=== PATIENT | male | born 1960 | race African-American/Black ===

== ENCOUNTER 2017-05-23 12:03 | Day surgery (SDC) | payer OTHER ==
[2017-05-21 12:54] LABS: ABSOLUTE BASOPHILS # (AUTO) 0.1 10^3/uL (0.0-0.2); ABSOLUTE EOSINOPHILS # (AUTO) 0.2 10^3/uL (0.0-0.6); ABSOLUTE LYMPHOCYTES (AUTO) 1.3 10^3/uL (0.5-4.7); ABSOLUTE MONOCYTES (AUTO) 0.8 10^3/uL (0.1-1.4); ABSOLUTE NEUT (AUTO) 3.7 10^3/uL (1.7-8.2); BASOPHILS % (AUTO) 0.9 % (0-2); EOSINOPHILS % (AUTO) 3.1 % (0-6); HEMATOCRIT 47.3 % (37.9-51.0); HEMOGLOBIN 15.6 g/dL (13.5-17.0); LYMPHOCYTES % (AUTO) 21.1 % (13-45); MEAN CORPUSCULAR HEMOGLOBIN 28.3 pg (27.0-33.4); MEAN CORPUSCULAR HGB CONC 33.1 g/dL (32.0-36.0); MEAN CORPUSCULAR VOLUME 86 fl (80-97); MONOCYTES % (AUTO) 13.4 % (3-13); PLATELET COUNT 150 10^3/uL (150-450); RED BLOOD COUNT 5.52 10^6/uL (4.35-5.55); RED CELL DISTRIBUTION WIDTH 14.5 % (11.5-14.0); SEGMENTED NEUTROPHILS % (AUTO) 61.5 % (42-78); TOTAL CELLS COUNTED % (AUTO) 100 %
[2017-05-21 13:15] LABS: ANION GAP 14 (5-19); BLOOD UREA NITROGEN 11 mg/dL (7-20); CALCIUM 10.5 mg/dL (8.4-10.2); CARBON DIOXIDE 27 mmol/L (22-30); CHLORIDE 101 mmol/L (98-107); GLUCOSE 95 mg/dL (75-110); POTASSIUM 4.7 mmol/L (3.6-5.0); SODIUM 141.9 mmol/L (137-145)
--- NOTE | 2017-05-21 17:07 | EKG REPORT ---
SEVERITY:- NORMAL ECG - SINUS RHYTHM : Confirmed by: Josef Collier MD 21-May-2017 17:07:04
[~2017-05-23 12:03] MED LIST: LACTATED RINGERS 1000 ML IV PRN; LIDOCAINE 0.5% INJ-PF (5 MG/ML) 50 ML SDV SUBCUT PRN; SUCCINYLCHOLINE CHLORIDE INJ 200 MG/10 ML VIAL ONE
[2017-05-23] MEDS ORDERED: MIDAZOLAM 2 MG/2 ML INJ ONE ×2 (13:59→20:19)
[2017-05-23] MEDS ORDERED: PROPOFOL INJ 200 MG/20 ML VIAL IV ONE (14:00)
[2017-05-23] MEDS ORDERED: FENTANYL CITRATE INJ/PF 100 MCG/2 ML AMPUL ONE ×2 (14:00→16:08)
[2017-05-23] MEDS ORDERED: CEFAZOLIN 1 GM/D5W RTU 1 GM/50 ML RTUPB IV ONE (14:00)
[2017-05-23] MEDS ORDERED: LIDOCAINE 2% INJ (20 MG/ML) 20 ML MDV ONE (14:25)
[2017-05-23] MEDS ORDERED: OXYCODONE-ACETAMINOPHEN 5-325 MG TABLET PO PRN ×2 (14:43)
[2017-05-23] MEDS ORDERED: FENTANYL CITRATE INJ/PF 100 MCG/2 ML AMPUL IV PRN ×3 (14:43)
[2017-05-23] MEDS ORDERED: MORPHINE SULFATE 10 MG/ML INJ IV PRN ×2 (14:43→16:31)
[2017-05-23] MEDS ORDERED: DIPHENHYDRAMINE HCL 50 MG/ML VIAL IV PRN (14:43)
[2017-05-23] MEDS ORDERED: MEPERIDINE HCL/PF INJ 25 MG/1 ML DISP.SYRIN IV PRN (14:43)
[2017-05-23] MEDS ORDERED: PROMETHAZINE HCL INJ 25 MG/1 ML VIAL IV PRN ×2 (14:43)
--- NOTE | 2017-05-23 15:42 | Brief Operative Note ---
BRIEF OPERATIVE REPORT DATE OF SURGERY: 05/23/17 TIME OF SURGERY: 14:15 PREOPERATIVE DIAGNOSIS: Left hydrocele POSTOPERATIVE DIAGNOSIS: Same SURGEON: FIOR MARRERO II FINDINGS: Left hydrocele COMPLICATIONS: None ESTIMATED BLOOD LOSS: 25 cc TISSUE REMOVED OR ALTERED: None TECHNICAL PROCEDURE: Left hydrocelectomy
--- NOTE | 2017-05-23 15:47 | Operative Report ---
Operative Report DATE OF SURGERY: 05/23/17 Operative Report: Operative note Preoperative diagnosis: Left hydrocele graft postoperative diagnosis: Same Procedure: Left hydrocelectomy Anesthesia: General Surgeon: Peg Dictation of procedure: The patient was taken to the operating room and placed into the supine position on the operating room table. After adequate general anesthesia he was prepped and draped in the usual sterile fashion. 2% Xylocaine was injected into the midline of the scope of the scrotum. Scrotum was incised sharply with a scalpel this was taken down through the layers of the scrotum to the left hydrocele sac. Using blunt and sharp dissection, the hydrocele sac was dissected from the scrotal wall. A knife was used to open the hydrocele sac and approximately 300 cc of clear yellow fluid was removed from the hydrocele sac. The left scrotal contents could then be delivered through the incision. The appendix testis was removed. Utilizing a bottle procedure, the hydrocele sac was everted around the testicle and utilizing running 3-0 chromic, was tacked behind the testicle. Care was taken to avoid compromising the blood flow to the left testicle. A 1/4 inch [place] drain was then placed into the left hemiscrotum and brought through a separate stab incision in the inferior scrotum. This was tacked to the skin with 2-0 silk suture. Care was taken to position the testicle in the proper orientation in the left hemiscrotum. Bleeding was controlled using the cautery. Attention was then turned to closure. Utilizing interrupted 3-0 chromic suture, the incision was closed with a horizontal mattress suture. Sterile dressing was applied jockstrap was used to hold the dressing in place. The patient was returned to PACU in satisfactory condition. He tolerated the procedure well. PREOPERATIVE DIAGNOSIS: Left hydrocele POSTOPERATIVE DIAGNOSIS: Same OPERATION: Left hydrocelectomy SURGEON: FIOR MARRERO II TISSUE REMOVED OR ALTERED: None ESTIMATED BLOOD LOSS: 25 cc INTRAOPERATIVE FINDINGS: Left hydrocele
[2017-05-23] MEDS ORDERED: NORMAL SALINE 1000 ML 1,000 ML IV PRN (16:30)
[2017-05-23] MEDS ORDERED: ONDANSETRON HCL INJ/PF 4 MG/2 ML SDV IV PRN (16:32)
[2017-05-23] MEDS ORDERED: HYDROCODONE/ACETAMINOPHEN 7.5-325 MG TABLET PO PRN (16:32)
[2017-05-23] MEDS ORDERED: DEXAMETHASONE SOD PHOS INJ 10 MG/1 ML VIAL ONE (17:05)
[2017-05-23] MEDS ORDERED: DIPHENHYDRAMINE HCL 50 MG/ML VIAL ONE (17:29)
[2017-05-23] MEDS ORDERED: FAMOTIDINE INJ/PF 20 MG/2 ML SDV IV ONE (17:29)
[2017-05-23] MEDS ORDERED: METHYLPREDNISOLONE INJ 125 MG/2 ML SDV ONE (17:29)
[2017-05-23] MEDS ORDERED: EPINEPHRINE INJ/PF 1 MG/1 ML AMPULE ONE ×2 (17:30→20:22)
--- NOTE | 2017-05-23 19:03 | PDOC CONSULTATION ---
Consultation Consult Date: 05/23/17 Consult reason:: Standby for possible trach if intubation fails History of Present Illness History of Present Illness: THANH URIBE is a 57 year old male post hernia/cystocoele surgery this am. Noted enlarging tongue, angioedema after taking po percocet. Claims had this problem in the past. Anesthesia is intubating patient in the OR and i was requested to be on standby for possible trach if intubation fails. Past Medical History Cardiac Medical History: Reports: Hypertension Denies: Coronary Artery Disease, Myocardial Infarction Pulmonary Medical History: Reports: Asthma - A CHILD Denies: Bronchitis, Chronic Obstructive Pulmonary Disease (COPD), Pneumonia Neurological Medical History: Denies: Seizures Musculoskeltal Medical History: Reports: Arthritis - LOWER BACK Hematology: Denies: Anemia Social History Smoking Status: Never Smoker Family History Family History: Reviewed & Not Pertinent Parental Family History Reviewed: No Children Family History Reviewed: No Sibling(s) Family History Reviewed.: No Medication/Allergy Home Medications: Allopurinol [Zyloprim 300 mg Tablet] 300 mg PO DAILY 05/16/17 Hydrochlorothiazide 12.5 mg PO DAILY 05/16/17 Ibuprofen [Advil] 200 mg PO DAILY PRN 05/16/17 Allergies/Adverse Reactions: No Known Allergies Allergy (Unverified 05/23/17 12:59) Review of Systems Respiratory: PRESENT: other - some dyspnea due to swollen tongue Physical Exam Vital Signs: Temp Pulse Resp BP Pulse Ox 97.6 F 67 14 153/109 H 99 05/23/17 16:47 05/23/17 17:00 05/23/17 17:00 05/23/17 17:00 05/23/17 17:00 Intake & Output 05/22/17 05/23/17 05/24/17 06:59 06:59 06:59 Intake Total 1400 Output Total 25 Balance 1375 Weight 74.39 kg General appearance: PRESENT: mild distress Head exam: PRESENT: atraumatic Mouth exam: PRESENT: other - tongue swollen Neck exam: PRESENT: full ROM Respiratory exam: PRESENT: clear to auscultation nora Cardiovascular exam: PRESENT: RRR GI/Abdominal exam: PRESENT: soft Rectal exam: PRESENT: deferred Extremities exam: PRESENT: full ROM Musculoskeletal exam: PRESENT: ambulatory Psychiatric exam: PRESENT: appropriate affect Skin exam: PRESENT: normal color, warm Results Laboratory Results: 05/21/17 12:15 05/21/17 12:15 Assessment & Plan - Time Time Spent: 30 to 50 Minutes - Plan Summary Plan Summary: In the OR gown on standby while pt intubated. Eventually intubated after several attempts. No need for trach.
[2017-05-23] MEDS ORDERED: PROPOFOL 100 ML IV ONE ×2 (19:13→20:54)
[2017-05-23 19:44] LABS: ARTERIAL BLOOD BASE EXCESS -1.9 mmol/L; ARTERIAL BLOOD H2CO3 1.62 mmol/L (1.05-1.35); ARTERIAL BLOOD HCO3 25.5 mmol/L (20-26); ARTERIAL BLOOD O2 SATURATION 92.6 % (94-98); ARTERIAL BLOOD PCO2 53.7 mmHg (35-45); ARTERIAL BLOOD PH 7.29 (7.35-7.45); ARTERIAL BLOOD PO2 72.1 mmHg (80-100); ARTERIAL BLOOD TOTAL CO2 27.1 mmol/L (23-27)
[2017-05-23 19:46] LABS: ARTERIAL BLOOD FIO2 40%
[2017-05-23 20:44] LABS: ALANINE AMINOTRANSFERASE 39 U/L (21-72); ALBUMIN 3.5 g/dL (3.5-5.0); ALKALINE PHOSPHATASE 59 U/L (38-126); ANION GAP 12 (5-19); ASPARTATE AMINO TRANSFERASE 38 U/L (17-59); BILIRUBIN,DIRECT 0.2 mg/dL (0.0-0.4); BILIRUBIN,TOTAL 0.3 mg/dL (0.2-1.3); BLOOD UREA NITROGEN 14 mg/dL (7-20); CALCIUM 8.9 mg/dL (8.4-10.2); CARBON DIOXIDE 26 mmol/L (22-30); CHLORIDE 104 mmol/L (98-107); GLUCOSE 110 mg/dL (75-110); POTASSIUM 4.1 mmol/L (3.6-5.0); SODIUM 141.5 mmol/L (137-145); TOTAL PROTEIN 5.8 g/dL (6.3-8.2)
[2017-05-23] MEDS ORDERED: INFLUENZA ADLT QUAD (36MOS+) 2017-18 VAC 0.5 ML SYR IM PRN (20:47)
[2017-05-23 20:49] LABS: INTERNATIONAL RATION (INR) 0.93; PARTIAL THROMBOPLASTIN TIME 26.4 SEC (23.5-35.8); PROTHROMBIN TIME 13.2 SEC (11.4-15.4)
[2017-05-23 20:55] LABS: CREATINE KINASE MB 4.11 ng/mL (<4.55); TROPONIN I 0.026 ng/mL
--- NOTE | 2017-05-23 21:01 | PDOC H&P ---
History of Present Illness Admission Date/PCP: 05/23/2017 [facility] History of Present Illness: I was notified of this patient's arrival in the ICU by Whit Newell RN at 2000. Collateral information was obtained from Dr. Ruvalcaba, urology and . Patient is a 57-year-old male who has a history of hypertension , lung cancer, gout, and seasonal asthma who presented today for a simple hydrocele repair. During his stay in ambulatory surgery prior to discharge he developed tongue swelling and was subsequently transferred to the ER by staff there. Patient then was transferred from the ER to the OR and was subsequently intubated by anesthesiology. Please see their notes for information on this. Patient did receive IM epinephrine, IV Pepcid, and Solu-Medrol while in the emergency department. Patient's reports that this happened to him several years ago and he had a thorough workup by allergy and the cause of his angioedema was unknown. Past Medical History Cardiac Medical History: Reports: Hypertension Denies: Coronary Artery Disease, Myocardial Infarction Pulmonary Medical History: Reports: Asthma - A CHILD Denies: Bronchitis, Chronic Obstructive Pulmonary Disease (COPD), Pneumonia Neurological Medical History: Denies: Seizures Malignancy Medical History: Reports: Lung Cancer Musculoskeltal Medical History: Reports: Arthritis - LOWER BACK Hematology: Denies: Anemia Past Surgical History Past Surgical History: Reports: Herniorrhaphy, Other - Hydrocele Social History Smoking Status: Never Smoker Frequency of Alcohol Use: Occasional Amount of Alcoholic Beverages Per Day: 3 beers about 4 times a week Hx Recreational Drug Use: No Hx Prescription Drug Abuse: No - Advance Directive Resuscitation Status: Full Code Surrogate healthcare decision maker:: Aparna Yusuf, Family History Family History: CAD Parental Family History Reviewed: Yes Children Family History Reviewed: Yes Sibling(s) Family History Reviewed.: Yes Medication/Allergy Home Medications: Allopurinol [Zyloprim 300 mg Tablet] 300 mg PO DAILY 05/16/17 Hydrochlorothiazide 12.5 mg PO DAILY 05/16/17 Ibuprofen [Advil] 200 mg PO DAILY PRN 05/16/17 Allergies/Adverse Reactions: No Known Allergies Allergy (Unverified 05/23/17 12:59) Review of Systems ROS unobtainable: Due to endotracheal tube Physical Exam Vital Signs: Temp Pulse Resp BP Pulse Ox 97.6 F 94 16 120/83 100 05/23/17 19:19 05/23/17 19:19 05/23/17 19:19 05/23/17 19:19 05/23/17 19:19 Intake & Output 05/22/17 05/23/17 05/24/17 06:59 06:59 06:59 Intake Total 1400 Output Total 25 Balance 1375 Weight 74.39 kg General appearance: PRESENT: well-developed, well-nourished Eye exam: PRESENT: conjunctiva pink, EOMI. ABSENT: scleral icterus Ear exam: PRESENT: normal external ear exam Mouth exam: PRESENT: moist, tongue midline, other - Significant facial swelling and tongue swelling Endotracheal tube present Neck exam: PRESENT: other - Submandibular swelling. ABSENT: carotid bruit, JVD , lymphadenopathy, thyromegaly, tracheal deviation Respiratory exam: PRESENT: clear to auscultation nora, symmetrical. ABSENT: rales, rhonchi, wheezes Cardiovascular exam: PRESENT: RRR, +S1, +S2. ABSENT: diastolic murmur, rubs, systolic murmur Pulses: PRESENT: normal dorsalis pedis pul Vascular exam: PRESENT: normal capillary refill GI/Abdominal exam: PRESENT: normal bowel sounds, soft. ABSENT: distended, guarding, mass, organolmegaly, rebound, tenderness Rectal exam: PRESENT: deferred Extremities exam: PRESENT: full ROM. ABSENT: calf tenderness, clubbing, pedal edema Neurological exam: PRESENT: other - Intubated, sedated, mechanically ventilated Psychiatric exam: PRESENT: other - Intubated, sedated, mechanically ventilated Skin exam: PRESENT: dry, intact, warm. ABSENT: cyanosis, rash Results Laboratory Results: 05/21/17 12:15 05/23/17 19:15 Carbonic Acid 1.62 H HCO3/H2CO3 Ratio 15:1 ABG pH 7.29 L ABG pCO2 53.7 H ABG pO2 72.1 L ABG HCO3 25.5 ABG O2 Saturation 92.6 L ABG Base Excess -1.9 FiO2 40% Assessment & Plan - Diagnosis (1) Anaphylactic shock Qualifiers: Encounter type: initial encounter Qualified Code(s): T78.2XXA - Anaphylactic shock, unspecified, initial encounter Is this a current diagnosis for this admission?: Yes Plan: Patient is on IV Solu-Medrol, IV Pepcid, and IV Benadryl. Have repeated patient 's IM dosing of epinephrine and he still remains mildly hypotensive after fluid bolus, will initiate IV fluids and repeat bolus as well as initiate patient on low-dose epinephrine drip. We will monitor his troponins and his heart on telemetry for arrhythmia. (2) Angioedema Qualifiers: Encounter type: initial encounter Qualified Code(s): T78.3XXA - Angioneurotic edema, initial encounter Is this a current diagnosis for this admission?: Yes Plan: Patient is on scheduled Solu-Medrol, Pepcid, and IV Benadryl. Will also repeat IM dosing of epinephrine. Patient is intubated (3) History of lung cancer Is this a current diagnosis for this admission?: Yes (4) Asthma Qualifiers: Asthma severity: unspecified severity Is this a current diagnosis for this admission?: Yes (5) Acute respiratory failure Qualifiers: Respiratory failure complication: unspecified whether with hypoxia or hypercapnia Qualified Code(s): J96.00 - Acute respiratory failure, unspecified whether with hypoxia or hypercapnia Is this a current diagnosis for this admission?: Yes Plan: ABG is pending, have consulted Dr. Gauthier of pulmonary medicine for ventilator management and defer to him. - Time Time Spent: 50 to 70 Minutes Critical Time spent with patient: 35 or more minutes - 65 minutes of critical care time - Inpatient Certification Based on my medical assessment, after consideration of the patient's comorbidities, presenting symptoms, or acuity I expect that the services needed warrant INPATIENT care.: Yes I certify that my determination is in accordance with my understanding of Medicare's requirements for reasonable and necessary INPATIENT services [42 CFR 412.3e].: Yes Medical Necessity: Need For IV Fluids, Need For Continuous Telemetry Monitoring , Need for Surgery, Risk of Complication if Not Cared For in Hospital Post Hospital Care: D/C [employer] Documentation
[2017-05-23 22:22] LABS: ARTERIAL BLOOD BASE EXCESS -3.3 mmol/L; ARTERIAL BLOOD FIO2 100%; ARTERIAL BLOOD H2CO3 1.49 mmol/L (1.05-1.35); ARTERIAL BLOOD HCO3 23.5 mmol/L (20-26); ARTERIAL BLOOD O2 SATURATION 99.7 % (94-98); ARTERIAL BLOOD PCO2 49.4 mmHg (35-45); ARTERIAL BLOOD PO2 364.4 mmHg (80-100)
[2017-05-23 23:32] VITALS: BP 109/73
[2017-05-24] MEDS ORDERED: PROPOFOL 100 ML IV ONE (00:10)
== END 2017-05-24 00:57 | disposition other institution (70) ==
LOC: OROUT 12:03 → ICU 19:18 → OROUT 05-24 00:57
PROVIDERS: ATTEND Urology
PROC: 0VBG0ZZ Excision of Left Spermatic Cord, Open Approach (ICD-10-PCS; principal; 2017-05-23 14:00)
DX: N43.3 Hydrocele, unspecified (principal); T78.2XXA Anaphylactic shock, unspecified, initial encounter; T78.3XXA Angioneurotic edema, initial encounter; T88.7XXA Unspecified adverse effect of drug or medicament, initial encounter; T40.2X5A Adverse effect of other opioids, initial encounter; I10 Essential (primary) hypertension; M47.9 Spondylosis, unspecified; R22.0 Localized swelling, mass and lump, head; M10.9 Gout, unspecified; J96.00 Acute respiratory failure, unspecified whether with hypoxia or hypercapnia; J45.909 Unspecified asthma, uncomplicated; Z79.899 Other long term (current) drug therapy; Z85.118 Personal history of other malignant neoplasm of bronchus and lung
CPT/HCPCS: 55500; 93005; 36415 ×2; 82553; 82803; 82550; 83735; 85025; 85610; 85730; 80048; 80053; 84484; 83880; 93010; 94002; J2250; J3490; J0690; J1200; J0171; J3010; J2704 ×2; J2930; J0330; S0028; J1100; 31500; 920

== ENCOUNTER 2017-05-23 17:31 | Inpatient (IN) | payer OTHER ==
[2017-05-23] MEDS ORDERED: FAMOTIDINE INJ/PF 20 MG/2 ML SDV IV ONE (17:33)
[2017-05-23] MEDS ORDERED: METHYLPREDNISOLONE INJ 125 MG/2 ML SDV IV ONE (17:33)
[2017-05-23] MEDS ORDERED: DIPHENHYDRAMINE HCL 50 MG/ML VIAL IV ONE (17:33)
[2017-05-23] MEDS ORDERED: EPINEPHRINE INJ/PF 1 MG/1 ML AMPULE IM ONE ×2 (17:34→20:12)
--- NOTE | 2017-05-23 17:34 | ER Document Report ---
ED Allergic Reaction - General Stated Complaint: FACIAL SWELLING Time Seen by Provider: 05/23/17 17:33 Notes: Postsurgical patient that was brought over from outpatient surgery center with angioedema. Patient was having increased difficulty breathing with swollen tongue. Patient seen immediately on arrival. Excessively swollen tongue. Patient in extremis at arrival. Initial verbal orders were given for Benadryl, Pepcid, steroids, epinephrine, epinephrine drip as well as fresh frozen plasma. Anesthesia notified. Surgery notified immediately. Trach kit available at bedside. Anesthesia now at bedside. TRAVEL OUTSIDE OF THE [place] IN LAST 30 DAYS: No - HPI Onset: Just prior to arrival Onset/Duration: Sudden - Related Data Allergies/Adverse Reactions: No Known Allergies Allergy (Unverified 05/23/17 12:59) Past Medical History - General Information source: Relative - Social History Smoking Status: Unknown if Ever Smoked Frequency of alcohol use: None Drug Abuse: None Lives with: Spouse/Significant other Family History: Reviewed & Not Pertinent - Past Medical History Cardiac Medical History: Reports: Hx Hypertension Denies: Hx Coronary Artery Disease, Hx Heart Attack Pulmonary Medical History: Reports: Hx Asthma - A CHILD Denies: Hx Bronchitis, Hx COPD, Hx Pneumonia Neurological Medical History: Denies: Hx Cerebrovascular Accident, Hx Seizures Musculoskeltal Medical History: Reports Hx Arthritis - LOWER BACK - Immunizations Hx Diphtheria, Pertussis, Tetanus Vaccination: Yes Review of Systems - Review of Systems -: Yes ROS unobtainable due to patient's medical condition Physical Exam - Vital signs Interpretation: Normal - General General appearance: Anxious In distress: Severe - HEENT Head: Normocephalic, Atraumatic Eyes: Normal Pupils: PERRL Mouth/Lips: Other - Patient with large amount of angioedema to the tongue unable to visualize anything else - Respiratory Respiratory status: No respiratory distress Chest status: Nontender Breath sounds: Normal Chest palpation: Normal - Cardiovascular Rhythm: Tachycardia Heart sounds: Normal auscultation Murmur: No - Abdominal Inspection: Normal Distension: No distension Bowel sounds: Normal Tenderness: Nontender Organomegaly: No organomegaly - Back Back: Normal, Nontender - Extremities General upper extremity: Normal inspection, Nontender, Normal color, Normal ROM , Normal temperature General lower extremity: Normal inspection, Nontender, Normal color, Normal ROM , Normal temperature, Normal weight bearing. No: Tadeo's sign - Neurological Neuro grossly intact: Yes Cognition: Normal Orientation: AAOx4 [place] Coma Scale Eye Opening: Spontaneous Bety Coma Scale Verbal: Oriented [place] Coma Scale Motor: Obeys Commands [place] Coma Scale Total: 15 Speech: Normal Motor strength normal: LUE, RUE, LLE, RLE Sensory: Normal - Psychological Associated symptoms: Normal affect, Normal mood - Skin Skin Temperature: Warm Skin Moisture: Dry Skin Color: Normal Course - Re-evaluation Re-evalutation: 05/23/17 17:59 Surgery page. Anesthesia page. Medications given as described in HPI. Patient continued to get worse. Decision was made to transfer patient immediately to the OR. Critical Care Note - Critical Care Note Total time excluding time spent on procedures (mins): 45 Discharge - Discharge Clinical Impression: Angioedema Qualifiers: Encounter type: initial encounter Qualified Code(s): T78.3XXA - Angioneurotic edema, initial encounter Condition: Critical Disposition: OTHER
[2017-05-23] MEDS ORDERED: ONDANSETRON HCL INJ/PF 4 MG/2 ML SDV IV ONE (17:35)
[2017-05-23] MEDS ORDERED: ONDANSETRON HCL INJ/PF 4 MG/2 ML SDV ONE (17:36)
[2017-05-23] MEDS ORDERED: NORMAL SALINE 250 ML IV PRN (17:36)
[2017-05-23] MEDS ORDERED: DEXTROSE 5%-WATER 250 ML with EPINEPHRINE/PF 1 MG IV PRN ×8 (17:54→20:40)
[2017-05-23] MEDS ORDERED: DEXMEDETOMIDINE INJ 80 MCG/20 ML VIAL IV ONE (18:06)
[2017-05-23] MEDS ORDERED: MIDAZOLAM 2 MG/2 ML INJ ONE (18:06)
[2017-05-23] MEDS ORDERED: PROPOFOL INJ 200 MG/20 ML VIAL IV ONE (18:06)
[2017-05-23] MEDS ORDERED: NORMAL SALINE 1000 ML 1,000 ML IV ONE (20:10)
[2017-05-23 20:16] LABS: ABSOLUTE EOSINOPHILS # (AUTO) 0.2 10^3/uL (0.0-0.6); ABSOLUTE LYMPHOCYTES (AUTO) 2.1 10^3/uL (0.5-4.7); ABSOLUTE MONOCYTES (AUTO) 0.8 10^3/uL (0.1-1.4); ABSOLUTE NEUT (AUTO) 2.6 10^3/uL (1.7-8.2); BASOPHILS % (AUTO) 0.6 % (0-2); EOSINOPHILS % (AUTO) 3.5 % (0-6); HEMATOCRIT 47.8 % (37.9-51.0); HEMOGLOBIN 15.6 g/dL (13.5-17.0); LYMPHOCYTES % (AUTO) 36.3 % (13-45); MEAN CORPUSCULAR HEMOGLOBIN 28.5 pg (27.0-33.4); MEAN CORPUSCULAR HGB CONC 32.6 g/dL (32.0-36.0); MEAN CORPUSCULAR VOLUME 88 fl (80-97); MONOCYTES % (AUTO) 14.4 % (3-13); PLATELET COUNT 146 10^3/uL (150-450); RED BLOOD COUNT 5.46 10^6/uL (4.35-5.55); RED CELL DISTRIBUTION WIDTH 14.8 % (11.5-14.0); SEGMENTED NEUTROPHILS % (AUTO) 45.2 % (42-78); TOTAL CELLS COUNTED % (AUTO) 100 %; WHITE BLOOD COUNT 5.9 10^3/uL (4.0-10.5)
[2017-05-23] MEDS ORDERED: MIDAZOLAM 2 MG/2 ML INJ IV ONE (20:18)
[2017-05-23] MEDS ORDERED: ONDANSETRON HCL INJ/PF 4 MG/2 ML SDV IV PRN (20:18)
[2017-05-23] MEDS: PROPOFOL 100 ML IV PRN (20:26)
[2017-05-23] MEDS ORDERED: ACETAMINOPHEN 650 MG SUPP.RECT PR PRN (20:31)
--- NOTE | 2017-05-23 20:36 | RADIOLOGY REPORT (SQ) ---
EXAM DESCRIPTION: CHEST SINGLE VIEW COMPLETED DATE/TIME: 05/23/2017 8:27 pm REASON FOR STUDY: tube placement COMPARISON: None. EXAM PARAMETERS: NUMBER OF VIEWS: One view. TECHNIQUE: Single frontal radiographic view of the chest acquired. RADIATION DOSE: NA LIMITATIONS: None. FINDINGS: LUNGS AND PLEURA: Diffuse interstitial prominence with patchy parenchymal densities, parti cularly in the right lower lobe MEDIASTINUM AND HILAR STRUCTURES: No masses. Contour normal. HEART AND VASCULAR STRUCTURES: Mild cardiomegaly. Normal vasculature. BONES: No acute findings. HARDWARE: Endotracheal tube with the tip located at the level of the clavicles, approximately 6 cm pr oximal to the ezequiel. OTHER: No other significant finding. IMPRESSION: 1. ENDOTRACHEAL TUBE DESCRIBED. ADVANCEMENT BY 2 CM MAY IMPROVE POSITIONING. 2. MILD CARDIOMEGALY. INTERSTITIAL PROMINENCE MAY BE DUE TO SCARRING OR EDEMA. PATCHY PARENCHYMAL D ENSITIES, PARTICULARLY IN THE RIGHT LOWER LOBE. MAY BE DUE TO PNEUMONIA. UNDERLYING MASS NOT EXCLUD ED. TECHNICAL DOCUMENTATION: JOB ID: [id number] [employer]- All Rights Reserved
[2017-05-23] MEDS ORDERED: PHARMACY COMMUNICATION ORDER MC NR (20:45)
[2017-05-24] MEDS: IPRATROPIUM/ALBUTEROL 0.5-2.5 MG/3 ML AMPUL NEB SCH ×4 (01:36→20:09)
[2017-05-24] MEDS: PROPOFOL 100 ML IV PRN ×8 (02:12→21:58)
[2017-05-24] MEDS: HEPARIN SOD (PORCINE) 5,000 UNIT/ML 1 ML SYRINGE SUBCUT SCH ×4 (02:18→22:21)
[2017-05-24] MEDS: METHYLPREDNISOLONE INJ 125 MG/2 ML SDV IV SCH ×5 (02:18→20:38)
[2017-05-24] MEDS: DIPHENHYDRAMINE HCL 50 MG/ML VIAL IV SCH ×5 (02:18→20:38)
[2017-05-24] MEDS: FAMOTIDINE INJ/PF 20 MG/2 ML SDV IV SCH ×3 (02:18→22:22)
[2017-05-24 03:54] LABS: APPEARANCE,URINE CLEAR; BILIRUBIN,URINE NEGATIVE (NEGATIVE); GLUCOSE, URINE 50 mg/dL (NEGATIVE); KETONES,URINE NEGATIVE (NEGATIVE); LEUKOCYTE ESTERASE,URINE NEGATIVE (NEGATIVE); NITRITE,URINE NEGATIVE (NEGATIVE); PROTEIN,URINE NEGATIVE (NEGATIVE); URINE SPECIFIC GRAVITY 1.005; UROBILINOGEN,URINE NEGATIVE mg/dL (<2.0)
[2017-05-24 03:59] LABS: COLOR,URINE YELLOW
--- NOTE | 2017-05-24 04:39 | RADIOLOGY REPORT (SQ) ---
EXAM DESCRIPTION: CHEST SINGLE VIEW CLINICAL HISTORY: resp failure COMPARISON: 05/23/2017 FINDINGS: Single frontal view of the chest. Endotracheal tube with tip 3 cm above the ezequiel. Interval placement of NG tube with tip below the diaphragm. Heart is not enlarged. Tortuosity of thoracic aorta. Bilateral interstitial and alveolar opacities, most confluent in the right lung base are not significantly changed. No pneumothorax. No new osseous abnormalities. Upper abdominal soft tissues are unremarkable. IMPRESSION: 1. Interval placement of NG tube. Otherwise no significant interval change.
[2017-05-24 05:01] LABS: HEMATOCRIT 36.9 % (37.9-51.0); MEAN CORPUSCULAR HEMOGLOBIN 28.3 pg (27.0-33.4); MEAN CORPUSCULAR HGB CONC 32.7 g/dL (32.0-36.0); MEAN CORPUSCULAR VOLUME 87 fl (80-97); PLATELET COUNT 127 10^3/uL (150-450); RED BLOOD COUNT 4.26 10^6/uL (4.35-5.55); RED CELL DISTRIBUTION WIDTH 14.1 % (11.5-14.0)
[2017-05-24 05:09] LABS: ANION GAP 12 (5-19); BLOOD UREA NITROGEN 14 mg/dL (7-20); CALCIUM 8.9 mg/dL (8.4-10.2); CARBON DIOXIDE 22 mmol/L (22-30); CHLORIDE 110 mmol/L (98-107); GLUCOSE 148 mg/dL (75-110); MAGNESIUM 1.9 mg/dL (1.6-2.3); PHOSPHORUS 2.5 mg/dL (2.5-4.5); POTASSIUM 4.2 mmol/L (3.6-5.0); SODIUM 144.3 mmol/L (137-145); TRIGLYCERIDES 91 mg/dL (<150)
[2017-05-24 05:27] LABS: ABSOLUTE LYMPHOCYTES# (MANUAL) 0.4 10^3/uL (0.5-4.7); ABSOLUTE MONOCYTES # (MANUAL) 0.2 10^3/uL (0.1-1.4); ABSOLUTE NEUTROPHILS# (MANUAL) 9.4 10^3/uL (1.7-8.2); BASOPHILS % (MANUAL) 0 % (0-2); EOSINOPHILS % (MANUAL) 0 % (0-6); LYMPHOCYTES % (MANUAL) 4 % (13-45); MONOCYTES % (MANUAL) 2 % (3-13); SEGMENTED NEUTROPHILS % (MAN) 94 % (42-78); TOTAL CELLS COUNTED 100
[2017-05-24 05:29] LABS: ANISOCYTOSIS SLIGHT; HYPOCHROMASIA SLIGHT; OVALOCYTES SLIGHT; PLATELET COMMENT DECREASED; POIKILOCYTOSIS SLIGHT
[2017-05-24] MEDS: NORMAL SALINE 1000 ML 1,000 ML IV PRN ×3 (05:34→20:38)
[2017-05-24 06:18] LABS: ARTERIAL BLOOD BASE EXCESS -0.1 mmol/L; ARTERIAL BLOOD H2CO3 1.06 mmol/L (1.05-1.35); ARTERIAL BLOOD HCO3 23.5 mmol/L (20-26); ARTERIAL BLOOD O2 SATURATION 97.4 % (94-98); ARTERIAL BLOOD PCO2 35.1 mmHg (35-45); ARTERIAL BLOOD PH 7.44 (7.35-7.45); ARTERIAL BLOOD PO2 92.6 mmHg (80-100); ARTERIAL BLOOD TOTAL CO2 24.6 mmol/L (23-27)
--- NOTE | 2017-05-24 09:02 | PROGRESS NOTE E ---
Progress Note NAME: THANH URIBE : 1960 AGE: 57Y DATE: 05/24/2017 ROOM: 609 SUBJECTIVE: The patient is currently lying in bed. The patient is intubated, unable to give any history. According to nursing, it appears that the patient's edema has improved, especially on the right side. The patient is maintaining MAPs greater than 80, slightly tachycardic, but remains on an epi drip, and the patient is unable to provide any history. REVIEW OF SYSTEMS: A full review of systems cannot be appreciated given the patient's mental status. MEDICATIONS: Medications have been reviewed. OBJECTIVE: GENERAL: The patient is a 57-year-old -Spanish male who is currently intubated, sedated, ventilated, does not appear to be distressed. VITAL SIGNS: Temperature is 97.9, pulse 89, respirations 20, blood pressure is 121/77, oxygen saturation is 99% on 30% FiO2. SKIN: Warm and dry. No rash. She is not diaphoretic. HEENT: ET tube is in place. The patient does have lingual and buccal edema. The patient does have some lower facial edema; however, again, according to staff, this does appear improved. Pupils are reactive. CARDIOVASCULAR SYSTEM: Heart is regular. There is no murmur or rub. CHEST: Clear, symmetrical, unlabored. ABDOMEN: Soft, nontender, nondistended. BACK: No CVA tenderness or sacral edema. EXTREMITIES: No clubbing, cyanosis, edema. GENITOURINARY: The patient does have a packing and drain in scrotum area, which appears intact. DIAGNOSTICS: Lab values are as follows: Hematology obtained on 05/24/2017: WBCs are 10.0, hemoglobin is 12.0, hematocrit is 36.9, platelet count is 127,000. Chemistry obtained on 05/24/2017: Sodium is 144, potassium 4.2, chloride is 110, carbon dioxide 22, BUN 14, creatinine is 0.94, glucose 148, calcium is 8.9, phosphorus 2.5, magnesium is 1.9. Triglycerides are 91. IMPRESSION AND PLAN: 1. ANAPHYLACTIC SHOCK, UNCERTAIN OF THE EXACT ORIGIN OF THIS. IT APPEARS THE PATIENT MAY HAVE HAD A HISTORY OF THIS IN THE PAST AFTER SURGERY. Will continue to ventilate. I will add an H1 receptor rubio and attempt to wean epi aggressively and follow. 2. POSTOPERATIVE HYDROCELE. Will continue postoperative directions as ordered. 3. HYPERTENSION. Uncertain of the patient's home blood pressure medications. Will follow. DISPOSITION: The patient is a FULL CODE. Pending patient's symptomatology and diagnostic findings, will re-evaluate as needed. Time spent on this followup including assessment, plan, physical examination, patient education, review of records is 35 minutes. DICTATING PHYSICIAN: EDUARDO HANNON NP [id number] PHY#: [id number] ID: [id number] JOB#: [id number] ACCT: [id number] cc: >
[2017-05-24] MEDS: CETIRIZINE 10 MG TABLET PO SCH (10:11)
[2017-05-24] MEDS ORDERED: LIDOCAINE 2% INJ-PF (20 MG/ML) 2 ML AMPUL ONE (11:01)
--- NOTE | 2017-05-24 17:58 | PDOC CONSULTATION ---
Consultation Consult Date: 05/24/17 Attending physician:: ASAF STEEN Consult reason:: acute resp failure/angioedema History of Present Illness Admission Date/PCP: 05/24/17 00:44 History of Present Illness: THANH URIBE is a 57 year old male Apparently presented with swelling that was rapidly progressive care while he was in the emergency room he was subsequently sent to the OR where he was intubated went to PACU and will the process is not clear he subsequently ended up a intubated in the ICU. Her history is had a prior event of angioedema in the past but that was not related to any particular medication or seafood. Past Medical History Cardiac Medical History: Reports: Hypertension Denies: Coronary Artery Disease, Myocardial Infarction Pulmonary Medical History: Reports: Asthma - A CHILD Denies: Bronchitis, Chronic Obstructive Pulmonary Disease (COPD), Pneumonia Neurological Medical History: Denies: Seizures Musculoskeltal Medical History: Reports: Arthritis - LOWER BACK Hematology: Denies: Anemia Social History Lives with: Spouse/Significant other Smoking Status: Unknown if Ever Smoked Family History Family History: Reviewed & Not Pertinent Medication/Allergy Home Medications: Allopurinol [Zyloprim 300 mg Tablet] 300 mg PO DAILY 05/24/17 Hydrochlorothiazide [Hydrodiuril 12.5 mg Capsule] 12.5 mg PO QAM 05/24/17 Methocarbamol [Robaxin 500 mg Tablet] 500 mg PO QIDP PRN 05/24/17 Allergies/Adverse Reactions: No Known Allergies Allergy (Unverified 05/23/17 12:59) Physical Exam Vital Signs: Temp Pulse Resp BP Pulse Ox 97.9 F 96 20 121/77 100 05/24/17 08:00 05/24/17 08:20 05/24/17 08:20 05/24/17 08:00 05/24/17 08:20 Intake & Output 05/23/17 05/24/17 05/25/17 06:59 06:59 06:59 Intake Total 2752 Output Total 2325 500 Balance 427 -500 Weight 80.1 kg General appearance: PRESENT: no acute distress, disheveled, thin, well- developed. ABSENT: cooperative, mild distress, morbidly obese, obese, severe distress Head exam: PRESENT: atraumatic, normocephalic Eye exam: PRESENT: conjunctiva pale, periorbital swelling. ABSENT: conjunctival injection, conjunctiva pink, nystagmus, scleral icterus Mouth exam: PRESENT: dry mucosa, tongue midline - Protrudes past lips & outside of the oral cavity. ABSENT: laceration, moist, neck supple Neck exam: ABSENT: carotid bruit, JVD, lymphadenopathy, thyromegaly, tracheal deviation, tracheostomy Respiratory exam: PRESENT: rhonchi, symmetrical, unlabored, wheezes. ABSENT: chest wall tenderness, clear to auscultation nora, crackles, decreased breath sounds, prolonged expiratory phas, rales, retraction, stridor, tachypnea Cardiovascular exam: PRESENT: RRR, +S1, +S2. ABSENT: rubs Pulses: PRESENT: normal radial pulses GI/Abdominal exam: PRESENT: diminished bowel sounds, soft Gentrourinary exam: PRESENT: indwelling catheter Extremities exam: ABSENT: clubbing, full ROM, joint swelling Musculoskeletal exam: ABSENT: ambulatory, deformity, dislocation, full ROM Neurological exam: ABSENT: alert, awake Skin exam: PRESENT: dry, warm Results Laboratory Results: 05/24/17 04:43 05/24/17 04:43 05/24/17 05/24/17 05/24/17 03:35 04:43 04:43 WBC 10.0 RBC 4.26 L Hgb 12.0 L D Hct 36.9 L MCV 87 MCH 28.3 MCHC 32.7 RDW 14.1 H Plt Count 127 L Seg Neutrophils % Not Reportable Lymphocytes % Not Reportable Monocytes % Not Reportable Eosinophils % Not Reportable Basophils % Not Reportable Absolute Neutrophils Not Reportable Absolute Lymphocytes Not Reportable Absolute Monocytes Not Reportable Absolute Eosinophils Not Reportable Absolute Basophils Not Reportable Carbonic Acid HCO3/H2CO3 Ratio ABG pH ABG pCO2 ABG pO2 ABG HCO3 ABG O2 Saturation ABG Base Excess FiO2 Sodium 144.3 Potassium 4.2 Chloride 110 H Carbon Dioxide 22 Anion Gap 12 BUN 14 Creatinine 0.94 Est GFR ( Amer) > 60 Est GFR (Non-Af Amer) > 60 Glucose 148 H Calcium 8.9 Phosphorus 2.5 Magnesium 1.9 Triglycerides 91 Urine Color YELLOW Urine Appearance CLEAR Urine pH 6.0 Ur Specific [place] 1.005 Urine Protein NEGATIVE Urine Glucose (UA) 50 H Urine Ketones NEGATIVE Urine Blood NEGATIVE Urine Nitrite NEGATIVE Ur Leukocyte Esterase NEGATIVE Urine WBC (Auto) 0 05/24/17 06:00 WBC RBC Hgb Hct MCV MCH MCHC RDW Plt Count Seg Neutrophils % Lymphocytes % Monocytes % Eosinophils % Basophils % Absolute Neutrophils Absolute Lymphocytes Absolute Monocytes Absolute Eosinophils Absolute Basophils Carbonic Acid 1.06 HCO3/H2CO3 Ratio 22:1 ABG pH 7.44 ABG pCO2 35.1 ABG pO2 92.6 ABG HCO3 23.5 ABG O2 Saturation 97.4 ABG Base Excess -0.1 FiO2 30 % Sodium Potassium Chloride Carbon Dioxide Anion Gap BUN Creatinine Est GFR ( Amer) Est GFR (Non-Af Amer) Glucose Calcium Phosphorus Magnesium Triglycerides Urine Color Urine Appearance Urine pH Ur Specific [place] Urine Protein Urine Glucose (UA) Urine Ketones Urine Blood Urine Nitrite Ur Leukocyte Esterase Urine WBC (Auto) 05/24/17 02:04 Troponin I 0.030 Impressions: Chest X-Ray 05/24/17 06:00 IMPRESSION: 1. Interval placement of NG tube. Otherwise no significant interval change. Assessment & Plan - Diagnosis (1) Acute respiratory failure Qualifiers: Respiratory failure complication: unspecified whether with hypoxia or hypercapnia Qualified Code(s): J96.00 - Acute respiratory failure, unspecified whether with hypoxia or hypercapnia Is this a current diagnosis for this admission?: Yes Plan: As result of angioedema H2 rubio H1 rubio FFP and steroids (2) Anaphylactic shock Qualifiers: Encounter type: subsequent encounter Qualified Code(s): T78.2XXD - Anaphylactic shock, unspecified, subsequent encounter Is this a current diagnosis for this admission?: Yes Plan: Etiology unclear (3) Asthma Qualifiers: Asthma severity: unspecified severity Is this a current diagnosis for this admission?: Yes Plan: Continue bronchodilator therapy - Time Total Critical Time (Minutes): 50
[2017-05-25] MEDS: PROPOFOL 100 ML IV PRN ×6 (01:06→22:31)
[2017-05-25] MEDS: IPRATROPIUM/ALBUTEROL 0.5-2.5 MG/3 ML AMPUL NEB SCH ×4 (02:04→20:17)
[2017-05-25] MEDS: DIPHENHYDRAMINE HCL 50 MG/ML VIAL IV SCH ×4 (02:27→21:58)
[2017-05-25] MEDS: METHYLPREDNISOLONE INJ 125 MG/2 ML SDV IV SCH ×4 (02:27→21:58)
[2017-05-25] MEDS: NORMAL SALINE 1000 ML 1,000 ML IV PRN ×3 (03:58→20:59)
[2017-05-25] MEDS: HEPARIN SOD (PORCINE) 5,000 UNIT/ML 1 ML SYRINGE SUBCUT SCH ×3 (05:11→21:58)
[2017-05-25 05:16] LABS: HEMOGLOBIN 10.9 g/dL (13.5-17.0); MEAN CORPUSCULAR HEMOGLOBIN 28.8 pg (27.0-33.4); MEAN CORPUSCULAR HGB CONC 33.1 g/dL (32.0-36.0); MEAN CORPUSCULAR VOLUME 87 fl (80-97); PLATELET COUNT 118 10^3/uL (150-450); RED BLOOD COUNT 3.79 10^6/uL (4.35-5.55); RED CELL DISTRIBUTION WIDTH 14.6 % (11.5-14.0); WHITE BLOOD COUNT 15.6 10^3/uL (4.0-10.5)
[2017-05-25 05:30] LABS: ARTERIAL BLOOD BASE EXCESS -2.1 mmol/L; ARTERIAL BLOOD H2CO3 1.04 mmol/L (1.05-1.35); ARTERIAL BLOOD HCO3 21.8 mmol/L (20-26); ARTERIAL BLOOD O2 SATURATION 97.4 % (94-98); ARTERIAL BLOOD PCO2 34.4 mmHg (35-45); ARTERIAL BLOOD PH 7.42 (7.35-7.45); ARTERIAL BLOOD PO2 94.2 mmHg (80-100); ARTERIAL BLOOD TOTAL CO2 22.8 mmol/L (23-27)
[2017-05-25 05:41] LABS: ABSOLUTE LYMPHOCYTES# (MANUAL) 0.3 10^3/uL (0.5-4.7); ABSOLUTE MONOCYTES # (MANUAL) 0.2 10^3/uL (0.1-1.4); ABSOLUTE NEUTROPHILS# (MANUAL) 15.1 10^3/uL (1.7-8.2); ALANINE AMINOTRANSFERASE 32 U/L (21-72); ALBUMIN 3.2 g/dL (3.5-5.0); ALKALINE PHOSPHATASE 50 U/L (38-126); ANION GAP 13 (5-19); ASPARTATE AMINO TRANSFERASE 26 U/L (17-59); BASOPHILS % (MANUAL) 0 % (0-2); BILIRUBIN,DIRECT 0.2 mg/dL (0.0-0.4); BILIRUBIN,TOTAL 0.2 mg/dL (0.2-1.3); BLOOD UREA NITROGEN 14 mg/dL (7-20); CALCIUM 8.7 mg/dL (8.4-10.2); CARBON DIOXIDE 21 mmol/L (22-30); CHLORIDE 114 mmol/L (98-107); EOSINOPHILS % (MANUAL) 0 % (0-6); GLUCOSE 132 mg/dL (75-110); LYMPHOCYTES % (MANUAL) 2 % (13-45); MAGNESIUM 2.3 mg/dL (1.6-2.3); MONOCYTES % (MANUAL) 1 % (3-13); POTASSIUM 4.1 mmol/L (3.6-5.0); SEGMENTED NEUTROPHILS % (MAN) 97 % (42-78); SODIUM 147.8 mmol/L (137-145); TOTAL CELLS COUNTED 100; TOTAL PROTEIN 5.6 g/dL (6.3-8.2)
[2017-05-25 05:42] LABS: ANISOCYTOSIS SLIGHT; PLATELET COMMENT DECREASED; TOXIC GRANULATION SLIGHT
[2017-05-25 05:47] LABS: ARTERIAL BLOOD FIO2 30%
--- NOTE | 2017-05-25 07:26 | RADIOLOGY REPORT (SQ) ---
EXAM DESCRIPTION: CHEST SINGLE VIEW CLINICAL HISTORY: pna/resp failure COMPARISON: 05/25/2019 FINDINGS: Single frontal view of the chest. Endotracheal tube with tip 3 cm above the ezequiel. NG tube with tip below the diaphragm. Heart is not enlarged. Tortuosity of thoracic aorta. Bilateral interstitial and alveolar opacities, most confluent in the right lung base with improved aeration of the left lung base. No pneumothorax. No new osseous abnormalities. Upper abdominal soft tissues are unremarkable. IMPRESSION: 1. Improved aeration of the left lung base. Otherwise stable appearance of the chest. Electronically signed by: Taj Flood 05/25/2017 6:25 AM
[2017-05-25] MEDS: CETIRIZINE 10 MG TABLET PO SCH (08:22)
--- NOTE | 2017-05-25 09:58 | PROGRESS NOTE E ---
Progress Note NAME: THANH URIBE : 1960 AGE: 57Y DATE: 05/25/2017 ROOM: 609 SUBJECTIVE: The patient is currently lying in bed. The patient's sedation has been cut off and the patient is awake and appears oriented. The patient appears to have had a biphasic response and is once again edematous. Therefore, we will forgo extubation for today. The patient has had no reported episodes of vomiting or diarrhea. The patient has been afebrile. His blood pressures have been in a good range. He has been off the epinephrine drip for about 22 hours at this point. The patient remains tachycardic and is unable to voice any concerns at this time. REVIEW OF SYSTEMS: The rest of review of systems is unable to be obtained. MEDICATIONS: Medications have been reviewed. OBJECTIVE: The patient is a 57-year-old male who is awake and alert. Sedation has been cut back. Does not appear to be distressed. Vital signs as follows: Temperature is 97.0, pulse 77, respirations 20, blood pressure 119/77, oxygen saturation 99% on 30% FIO2. Skin is warm and dry. No rashes or diaphoretic. HEENT: Pupils equal, round, and reactive to light and accommodation. Neck: No JVP: CV: Heart is tachycardic, regular, no murmur or rub. Chest is clear and symmetrical, nonlabored. Abdomen is soft, nontender, and nondistended. Back: No CVA tenderness or local edema. Extremities: No clubbing, cyanosis, or edema. : The patient's dressing is dry and intact. Psychiatric: Unable to be fully assessed. DIAGNOSTICS: Laboratory values are as follows: 1. Hematology obtained on 05/25/2017: WBC 51.8, hemoglobin 10.9, hematocrit 30.0, platelet count 118,000. 2. Chemistry obtained on 05/25/2017: Sodium 147, potassium 4.1, chloride 114, carbon dioxide 21, BUN 14, creatinine 0.94, glucose 132, calcium 8.7, magnesium 1.9. IMPRESSION AND PLAN: 1. Anaphylactic shock. The patient has been weaned from epinephrine drip. Blood pressure appears to be holding in an excellent range. The patient appears to have a history of this after his last surgery. Will attempt to obtain all intraoperative records and follow. 2. Hydrocele. The patient is postop day number 2. The patient's drain was pulled by urology. This appears improved. 3. Hypertension. The patient's blood pressures are in acceptable range. 4. Sinus tachycardia. This appears to be compensatory. DISPOSITION: The patient is a FULL CODE diagnostic findings. We will re-evaluate as needed. Time spent on this critical care visit including assessment and plan, physical examination, attend with patient education and all review of record was 35 minutes. DICTATING PHYSICIAN: EDUARDO HANNON NP [id number] PHY#: [id number] ID: [id number] JOB#: [id number] ACCT: [id number] cc: > MTDD
[2017-05-25] MEDS: FAMOTIDINE INJ/PF 20 MG/2 ML SDV IV SCH ×2 (11:04→21:58)
[2017-05-25] MEDS: HYDROMORPHONE HCL INJ/PF 2 MG/ML AMPULE IV PRN (16:35)
[2017-05-26] MEDS: IPRATROPIUM/ALBUTEROL 0.5-2.5 MG/3 ML AMPUL NEB SCH ×2 (01:55→08:09)
[2017-05-26] MEDS: METHYLPREDNISOLONE INJ 125 MG/2 ML SDV IV SCH ×4 (03:05→22:24)
[2017-05-26] MEDS: PROPOFOL 100 ML IV PRN ×2 (03:06→06:26)
[2017-05-26] MEDS: DIPHENHYDRAMINE HCL 50 MG/ML VIAL IV SCH ×2 (03:06→08:33)
[2017-05-26 04:14] LABS: HEMOGLOBIN 11.2 g/dL (13.5-17.0); MEAN CORPUSCULAR HEMOGLOBIN 28.6 pg (27.0-33.4); MEAN CORPUSCULAR HGB CONC 33.1 g/dL (32.0-36.0); MEAN CORPUSCULAR VOLUME 86 fl (80-97); PLATELET COUNT 144 10^3/uL (150-450); RED BLOOD COUNT 3.94 10^6/uL (4.35-5.55); RED CELL DISTRIBUTION WIDTH 15.2 % (11.5-14.0); WHITE BLOOD COUNT 15.2 10^3/uL (4.0-10.5)
[2017-05-26 04:39] LABS: ANION GAP 11 (5-19); BLOOD UREA NITROGEN 19 mg/dL (7-20); CALCIUM 8.9 mg/dL (8.4-10.2); CARBON DIOXIDE 22 mmol/L (22-30); CHLORIDE 118 mmol/L (98-107); GLUCOSE 127 mg/dL (75-110); MAGNESIUM 2.7 mg/dL (1.6-2.3); POTASSIUM 4.2 mmol/L (3.6-5.0); SODIUM 150.8 mmol/L (137-145)
[2017-05-26 06:14] LABS: ARTERIAL BLOOD BASE EXCESS -0.6 mmol/L; ARTERIAL BLOOD H2CO3 1.01 mmol/L (1.05-1.35); ARTERIAL BLOOD HCO3 22.8 mmol/L (20-26); ARTERIAL BLOOD O2 SATURATION 97.9 % (94-98); ARTERIAL BLOOD PCO2 33.7 mmHg (35-45); ARTERIAL BLOOD PH 7.45 (7.35-7.45); ARTERIAL BLOOD PO2 102.1 mmHg (80-100); ARTERIAL BLOOD TOTAL CO2 23.9 mmol/L (23-27)
[2017-05-26 06:18] LABS: ARTERIAL BLOOD FIO2 30%
[2017-05-26] MEDS: HEPARIN SOD (PORCINE) 5,000 UNIT/ML 1 ML SYRINGE SUBCUT SCH ×3 (06:27→22:25)
--- NOTE | 2017-05-26 07:24 | RADIOLOGY REPORT (SQ) ---
EXAM DESCRIPTION: CHEST SINGLE VIEW CLINICAL HISTORY: resp failure COMPARISON: 05/25/2017 FINDINGS: Single frontal view of the chest. Endotracheal tube with tip 3 cm above the ezequiel. NG tube with tip below the diaphragm. Heart is not enlarged. Tortuosity of thoracic aorta. Bibasilar opacities, more confluent on the right than the left are unchanged. No pneumothorax. No new osseous abnormalities. Upper abdominal soft tissues are unremarkable. IMPRESSION: 1. Stable appearance of the chest.
[2017-05-26] MEDS: HYDROMORPHONE HCL INJ/PF 2 MG/ML AMPULE IV PRN (08:33)
[2017-05-26] MEDS: CETIRIZINE 10 MG TABLET PO SCH (08:42)
[2017-05-26] MEDS: FAMOTIDINE INJ/PF 20 MG/2 ML SDV IV SCH ×2 (09:05→22:24)
--- NOTE | 2017-05-26 09:33 | PROGRESS NOTE E ---
Progress Note NAME: THANH URIBE : 1960 AGE: 57Y DATE: 05/26/2017 ROOM: 609 SUBJECTIVE: The patient is currently lying in bed. The patient will awaken and follow commands. The patient states that he is relatively comfortable. The patient is eager for extubation. The patient has been on pressure support with only 25% FiO2 and will proceed with such. REVIEW OF SYSTEMS: A full review of systems could not be appreciated given the patient's intubation. MEDICATIONS: Have been reviewed. OBJECTIVE: GENERAL: The patient is a 57-year-old -[place] male who is awake and alert. He is oriented. He does not appear to be distressed. VITAL SIGNS: Temperature is 97.7, pulse 92, respirations 20, blood pressure 159/89, oxygen saturation is 100% on 25% FiO2. SKIN: Warm and dry. No rash. He is not diaphoretic. HEENT: Pupils equal, round, reactive to light and accommodation. Edema has appeared to have resolved. CARDIOVASCULAR: Heart is regular. There is murmur or rub. CHEST: Clear, symmetrical, unlabored. ABDOMEN: Soft, nontender, nondistended. BACK: No CVA tenderness or sacral edema. EXTREMITIES: No clubbing, cyanosis, or edema. PSYCHIATRIC: Appropriate affect. Pleasant mood. DIAGNOSTICS: Lab values are as follows: Hematology obtained on 05/26/2017: WBCs are 15.2, hemoglobin is 11.2, hematocrit is 34.0, platelet count is 144,000. Chemistry obtained on 05/26/2017: Sodium is 147, potassium 4.2, chloride is 118, carbon dioxide 22, BUN 19, creatinine is 0.95, glucose 127, magnesium is 2.7. IMPRESSION AND PLAN: 1. ANAPHYLACTIC SHOCK. The patient has been off of epinephrine drip and the patient's angioedema appears to be resolved. Will continue H1 and H2 receptor blockers as well as steroids. Will proceed with extubation. 2. HYDROCELE. This is postoperative day #3. The drain was pulled by Urology. Appears improved. 3. HYPERTENSION. Blood pressures have been in acceptable range. 4. SINUS TACHYCARDIA. It appears to be compensatory and most likely pain. DISPOSITION: The patient is a FULL CODE. Pending patient's symptomatology and diagnostic findings, will reevaluate as needed. Time spent on this critical care visit including assessment, plan, physical examination, patient education, specialty collaboration, and review of records is 35 minutes. DICTATING PHYSICIAN: EDUARDO HANNON NP [id number] Y#: [id number] ID: [id number] JOB#: [id number] ACCT: [id number] cc: >
[2017-05-26] MEDS ORDERED: DEXAMETHASONE SOD PHOSPHATE INJ 4 MG/1 ML VIAL ONE (09:39)
[2017-05-26] MEDS ORDERED: METHOCARBAMOL 500 MG TABLET PO PRN (15:48)
[2017-05-26] MEDS ORDERED: HYDROCHLOROTHIAZIDE 12.5 MG CAPSULE NG ONE (17:00)
[2017-05-26] MEDS: METHOCARBAMOL 500 MG TABLET NG PRN (18:40)
[2017-05-26] MEDS ORDERED: FUROSEMIDE INJ/PF 20 MG/2 ML SDV IV ONE (20:05)
[2017-05-27 04:51] LABS: HEMATOCRIT 38.5 % (37.9-51.0); HEMOGLOBIN 12.7 g/dL (13.5-17.0); MEAN CORPUSCULAR VOLUME 85 fl (80-97); PLATELET COUNT 127 10^3/uL (150-450); RED BLOOD COUNT 4.52 10^6/uL (4.35-5.55); RED CELL DISTRIBUTION WIDTH 14.5 % (11.5-14.0)
[2017-05-27 04:57] LABS: ANION GAP 13 (5-19); BLOOD UREA NITROGEN 25 mg/dL (7-20); CALCIUM 9.5 mg/dL (8.4-10.2); CARBON DIOXIDE 27 mmol/L (22-30); CHLORIDE 108 mmol/L (98-107); GLUCOSE 120 mg/dL (75-110); MAGNESIUM 2.6 mg/dL (1.6-2.3); PHOSPHORUS 3.4 mg/dL (2.5-4.5); POTASSIUM 3.7 mmol/L (3.6-5.0)
[2017-05-27 05:31] LABS: ABSOLUTE LYMPHOCYTES# (MANUAL) 1.1 10^3/uL (0.5-4.7); ABSOLUTE MONOCYTES # (MANUAL) 0.5 10^3/uL (0.1-1.4); ABSOLUTE NEUTROPHILS# (MANUAL) 16.4 10^3/uL (1.7-8.2); BASOPHILS % (MANUAL) 0 % (0-2); EOSINOPHILS % (MANUAL) 0 % (0-6); LYMPHOCYTES % (MANUAL) 5 % (13-45); MONOCYTES % (MANUAL) 3 % (3-13); SEGMENTED NEUTROPHILS % (MAN) 91 % (42-78); TOTAL CELLS COUNTED 100
[2017-05-27 05:34] LABS: HYPOCHROMASIA SLIGHT; PLATELET COMMENT DECREASED; PLATELET LARGE PRESENT; POLYCHROMASIA SLIGHT
[2017-05-27 05:35] LABS: TOXIC VACUOLATION PRESENT
[2017-05-27] MEDS: HEPARIN SOD (PORCINE) 5,000 UNIT/ML 1 ML SYRINGE SUBCUT SCH (06:17)
--- NOTE | 2017-05-27 06:36 | RADIOLOGY REPORT (SQ) ---
EXAM DESCRIPTION: CHEST SINGLE VIEW CLINICAL HISTORY: resp failure COMPARISON: 05/26/2017 FINDINGS: Single frontal view of the chest. Interval removal of endotracheal tube and NG tube. Tortuosity of the thoracic aorta. Heart is not enlarged. Bibasilar opacities, more confluent on the right than the left are unchanged. No pneumothorax. No new osseous abnormalities. Upper abdominal soft tissues are unremarkable. IMPRESSION: 1. Interval removal of endotracheal tube and NG tube. Otherwise stable appearance of the chest. Electronically signed by: Taj Flood 05/27/2017 5:35 AM
[2017-05-27] MEDS: METHYLPREDNISOLONE INJ 125 MG/2 ML SDV IV SCH (07:45)
[2017-05-27] MEDS ORDERED: HYDROCHLOROTHIAZIDE 12.5 MG CAPSULE NG SCH ×2 (08:00)
[2017-05-27 08:23] VITALS: BP 166/98
[2017-05-27] MEDS ORDERED: CETIRIZINE 10 MG TABLET NG SCH (09:00)
[2017-05-27] MEDS ORDERED: METHYLPREDNISOLONE INJ 125 MG/2 ML SDV IV SCH (10:36)
[2017-05-27] MEDS: METHOCARBAMOL 500 MG TABLET NG PRN (10:39)
[2017-05-27] MEDS: FAMOTIDINE INJ/PF 20 MG/2 ML SDV IV SCH (10:39)
[2017-05-27] MEDS ORDERED: METHYLPREDNISOLONE INJ 40 MG/1 ML SDV IV SCH (14:00)
--- NOTE | 2017-05-27 20:39 | DISCHARGE SUMMARY E ---
Discharge Summary NAME: THANH URIBE : 1960 AGE: 57Y ADMITTED: 05/24/2017 DISCHARGED: 05/27/2017 CODE STATUS: FULL CODE. PRIMARY CARE PROVIDER: [facility]. CONSULTING UROLOGIST: Dr. Ruvalcaba. CONSULTING FLIGHT ENGINEER MANAGER: Dr. Gauthier. DISCHARGE DIAGNOSES: 1. Angioedema and subsequent anaphylactic shock. 2. Postop day #4 hydrocele repair. 3. Hypertension. 4. History of gout. DISCHARGE MEDICATIONS: Include 1. Prednisone 60 mg taper. 2. Zyrtec 10 mg p.o. daily, 30 tablets, 3 refills. 3. Pepcid 20 mg p.o. b.i.d., 60 tablets, 3 refills. 4. Hydrochlorothiazide 12.5 mg p.o. a.m. 5. Robaxin 500 mg p.o. four times daily p.r.n. 6. Allopurinol 300 mg p.o. daily. DIET: As tolerated. ACTIVITY: As tolerated. DIAGNOSTICS/LAB VALUES: Hematology on 05/23/2017: WBCs are 5.9, hemoglobin 15.6, hematocrit 47.8, platelet count is 146,000. Coagulation panel 05/23/2017: PT is 13.2, INR is 0.93. ABG obtained on 05/26/2017: A pH of 7.45, pCO2 is 33.7, pO2 is 102, bicarb 22.8. Chemistry obtained on 05/27/2017: Sodium is 148, potassium 3.7, chloride 108, carbon dioxide 27, BUN 25, creatinine 0.02, glucose 120, calcium 9.5, magnesium 2.6, bilirubin 0.2, AST 26, ALT 32, alkaline phosphatase 50, CK 44, CK-MB 4.11, troponin 0.026, total protein 5.6, albumin 3.2. Triglycerides are 91 cholesterol. Urinalysis obtained on 05/24/2017: Color yellow, appearance clear, pH of 6.0, specific gravity is 1.005, protein negative, glucose 50, ketones negative, occult blood negative, nitrite negative, bilirubin negative, urobilinogen negative, leukocyte esterase is negative. Ascorbic acid is negative. Chest x-ray obtained on 05/23/2017: Reveals endotracheal tube in place with no evidence of pneumonia. EKG obtained on 05/21/2017: Reveals sinus rhythm. PHYSICAL EXAMINATION: GENERAL: On examination, the patient is a well-developed, well-nourished 57-year-old -[place]izen [place] male who is awake, alert and oriented to person, place, time and situation. He is verbal, conversational, and ambulatory and does not appear to be in any acute distress. VITAL SIGNS FOLLOWS: Temperature 97.9, pulse 86, respirations 19, blood pressure 156/88, oxygen saturation is 100% on room air. SKIN: Warm and dry. No rash, not diaphoretic. HEENT: Pupils are equal, round, and reactive to light and accommodation. Conjunctivae is pink. NECK: There is no JVP. CARDIOVASCULAR: Heart is regular. There is no murmur or rub. CHEST: Clear, symmetrical and unlabored. ABDOMEN: Soft. Nontender, nondistended. BACK: No CVA tenderness or sacral edema. EXTREMITIES: No clubbing, cyanosis or edema. PSYCHIATRIC: Appropriate affect. Pleasant mood. HISTORY OF PRESENT ILLNESS: The patient is a 57-year-old -Citizen [place] male with a past medical history of hydrocele status post repair. The patient [facility] due to angioedema. The patient was status post hydrocele with Dr. Ruvalcaba of Urology. The patient, who is a 57-year-old -[place]izen [place] male, was presented to have simple hydrocele repair during his stay in ambulatory surgery. The patient developed tongue swelling and subsequently was transferred to the ER. The patient then was transferred from the ER to the OR and was intubated by Anesthesiology. The patient received IM epinephrine, IV Pepcid and Solu-Medrol while in the emergency department. The patient's reports this happened to him several years ago at [facility] and the source of the angioedema was never known. The patient subsequently was intubated and sedated and the patient was referred to the hospitalist for admission and management. HOSPITAL COURSE: The patient was admitted to ICU. The patient was covered with H1/H2 receptor blockers as well as Benadryl and solu-medrol. The patient became hypotensive and subsequently required an epinephrine drip. The patient did receive this for over 12 hours and eventually was titrated off of it. The patient did have a biphasic response in that his buccal and lingual edema improved and then recurred. The patient remained intubated for greater than 48 hours before extubation; however, at no time did the patient have significant respiratory failure, no transient hypoxia. The patient was not tachypneic. The patient was intubated strictly for airway protection given that the patient was having such diffuse angioedema. The patient's symptoms have resolved. The patient has been extubated for 24 hours. The patient has agreed to follow up with evaporator, and he is ready for discharge, as well as Urology recommends discharge. DISCHARGE PLANNIN. The patient is advised to follow up with his evaporator, Dr. Crum, within 1-2 weeks for hospital followup. 2. The patient is advised to follow with Neurology as scheduled. Time spent on this discharge including assessment and plan, physical examination, and patient education and review of records is 25 minutes. DICTATING PHYSICIAN: EDUARDO HANNON NP [id number] [id number] PHY#: [id number] ID: [id number] JOB#: [id number] ACCT: [id number] cc:KEYONNA GAUTHIER M.D. David DYKES M.D. EDUARDO HANNON NP >
--- NOTE | 2017-05-31 19:55 | PDOC PROGRESS REPORT ---
Subjective Progress Note for:: 05/25/17 Subjective:: intubated Reason For Visit: ANGIOEDEMA Physical Exam Vital Signs: Temp Pulse Resp BP Pulse Ox 97.0 F 77 20 119/77 99 05/25/17 08:00 05/25/17 08:00 05/25/17 08:00 05/25/17 08:00 05/25/17 08:00 Intake & Output 05/24/17 05/25/17 05/26/17 06:59 06:59 06:59 Intake Total 2752 3247 Output Total 2325 2285 150 Balance 427 962 -150 Weight 80.1 kg General appearance: PRESENT: no acute distress, disheveled, severe distress, well-developed. ABSENT: cooperative, mild distress, morbidly obese, obese Head exam: PRESENT: atraumatic, normocephalic Eye exam: PRESENT: conjunctiva pale. ABSENT: conjunctival injection, conjunctiva pink, nystagmus, periorbital swelling, scleral icterus Mouth exam: PRESENT: dry mucosa, neck supple, tongue midline - out of oral cavity lips swollen, other - ET tube. ABSENT: laceration, moist Teeth exam: PRESENT: poor dentation Neck exam: ABSENT: carotid bruit, JVD, lymphadenopathy, thyromegaly, tracheal deviation, tracheostomy Respiratory exam: PRESENT: clear to auscultation nora, rhonchi, symmetrical, unlabored. ABSENT: accessory muscle use, chest wall tenderness, crackles, decreased breath sounds, prolonged expiratory phas, rales, retraction, stridor, tachypnea, wheezes Cardiovascular exam: PRESENT: RRR, +S1, +S2 Pulses: PRESENT: normal radial pulses GI/Abdominal exam: PRESENT: diminished bowel sounds, soft Extremities exam: PRESENT: full ROM. ABSENT: clubbing, joint swelling Musculoskeletal exam: PRESENT: ambulatory, full ROM. ABSENT: deformity, dislocation Neurological exam: ABSENT: alert, awake Skin exam: PRESENT: dry, warm Results Laboratory Results: 05/25/17 04:54 05/25/17 04:54 05/25/17 05/25/17 05/25/17 04:54 04:54 05:10 WBC 15.6 H RBC 3.79 L Hgb 10.9 L Hct 33.0 L MCV 87 MCH 28.8 MCHC 33.1 RDW 14.6 H Plt Count 118 L Seg Neutrophils % Not Reportable Lymphocytes % Not Reportable Monocytes % Not Reportable Eosinophils % Not Reportable Basophils % Not Reportable Absolute Neutrophils Not Reportable Absolute Lymphocytes Not Reportable Absolute Monocytes Not Reportable Absolute Eosinophils Not Reportable Absolute Basophils Not Reportable Carbonic Acid 1.04 L HCO3/H2CO3 Ratio 20:1 ABG pH 7.42 ABG pCO2 34.4 L ABG pO2 94.2 ABG HCO3 21.8 ABG O2 Saturation 97.4 ABG Base Excess -2.1 FiO2 30% Sodium 147.8 H Potassium 4.1 Chloride 114 H Carbon Dioxide 21 L Anion Gap 13 BUN 14 Creatinine 0.94 Est GFR ( Amer) > 60 Est GFR (Non-Af Amer) > 60 Glucose 132 H Calcium 8.7 Magnesium 2.3 Total Bilirubin 0.2 AST 26 ALT 32 Alkaline Phosphatase 50 Total Protein 5.6 L Albumin 3.2 L 05/24/17 02:04 Troponin I 0.030 Impressions: Chest X-Ray 05/25/17 06:00 IMPRESSION: 1. Improved aeration of the left lung base. Otherwise stable appearance of the chest. Assessment & Plan - Diagnosis (1) Acute respiratory failure Qualifiers: Respiratory failure complication: unspecified whether with hypoxia or hypercapnia Qualified Code(s): J96.00 - Acute respiratory failure, unspecified whether with hypoxia or hypercapnia Is this a current diagnosis for this admission?: Yes Plan: As result of angioedema H2 rubio H1 rubio FFP and steroids (2) Anaphylactic shock Qualifiers: Encounter type: subsequent encounter Qualified Code(s): T78.2XXD - Anaphylactic shock, unspecified, subsequent encounter Is this a current diagnosis for this admission?: Yes Plan: Etiology unclear tounge out of oral cavity (3) Asthma Qualifiers: Asthma severity: unspecified severity Is this a current diagnosis for this admission?: Yes Plan: Continue bronchodilator therapy - Time Total Critical Time (Minutes): 40
--- NOTE | 2017-05-31 19:59 | PDOC PROGRESS REPORT ---
Subjective Progress Note for:: 05/26/17 Subjective:: extubated by pcp Reason For Visit: ANGIOEDEMA Physical Exam Vital Signs: Temp Pulse Resp BP Pulse Ox 97.7 F 90 13 159/89 H 96 05/26/17 08:00 05/26/17 08:09 05/26/17 08:09 05/26/17 08:00 05/26/17 08:09 Intake & Output 05/25/17 05/26/17 05/27/17 06:59 06:59 06:59 Intake Total 3247 3700 Output Total 2285 2380 65 Balance 962 1320 -65 Weight 81.4 kg General appearance: PRESENT: no acute distress, cooperative, disheveled, mild distress, morbidly obese, obese, severe distress, well-developed Head exam: PRESENT: atraumatic, normocephalic Eye exam: PRESENT: conjunctiva pale, EOMI. ABSENT: conjunctival injection, conjunctiva pink, nystagmus, periorbital swelling, scleral icterus Mouth exam: PRESENT: moist, neck supple, tongue midline. ABSENT: dry mucosa, laceration Neck exam: ABSENT: carotid bruit, JVD, lymphadenopathy, thyromegaly, tracheal deviation, tracheostomy Respiratory exam: PRESENT: decreased breath sounds, prolonged expiratory phas, rales, retraction, rhonchi, symmetrical, unlabored. ABSENT: accessory muscle use, chest wall tenderness, clear to auscultation nora, crackles, stridor, tachypnea Cardiovascular exam: PRESENT: RRR, +S1, +S2 Pulses: PRESENT: normal radial pulses GI/Abdominal exam: PRESENT: diminished bowel sounds, soft Extremities exam: PRESENT: full ROM. ABSENT: clubbing, joint swelling Musculoskeletal exam: PRESENT: ambulatory, full ROM Neurological exam: PRESENT: alert, altered Psychiatric exam: PRESENT: flat affect Skin exam: PRESENT: dry, warm Results Laboratory Results: 05/26/17 03:50 05/26/17 03:50 05/26/17 05/26/17 05/26/17 03:50 03:50 06:03 WBC 15.2 H RBC 3.94 L Hgb 11.2 L Hct 34.0 L MCV 86 MCH 28.6 MCHC 33.1 RDW 15.2 H Plt Count 144 L Carbonic Acid 1.01 L HCO3/H2CO3 Ratio 22:1 ABG pH 7.45 ABG pCO2 33.7 L ABG pO2 102.1 H ABG HCO3 22.8 ABG O2 Saturation 97.9 ABG Base Excess -0.6 FiO2 30% Sodium 150.8 H Potassium 4.2 Chloride 118 H Carbon Dioxide 22 Anion Gap 11 BUN 19 Creatinine 0.95 Est GFR ( Amer) > 60 Est GFR (Non-Af Amer) > 60 Glucose 127 H Calcium 8.9 Magnesium 2.7 H 05/24/17 02:04 Troponin I 0.030 Impressions: Chest X-Ray 05/26/17 06:00 IMPRESSION: 1. Stable appearance of the chest. Assessment & Plan - Diagnosis (1) Acute respiratory failure Qualifiers: Respiratory failure complication: unspecified whether with hypoxia or hypercapnia Qualified Code(s): J96.00 - Acute respiratory failure, unspecified whether with hypoxia or hypercapnia Is this a current diagnosis for this admission?: Yes Plan: extubated stable (2) Anaphylactic shock Qualifiers: Encounter type: subsequent encounter Qualified Code(s): T78.2XXD - Anaphylactic shock, unspecified, subsequent encounter Is this a current diagnosis for this admission?: Yes Plan: Etiology unclear extubated (3) Asthma Qualifiers: Asthma severity: unspecified severity Is this a current diagnosis for this admission?: Yes Plan: Continue bronchodilator therapy - Time Total Critical Time (Minutes): 35
--- NOTE | 2017-05-31 20:00 | PDOC PROGRESS REPORT ---
Subjective Progress Note for:: 05/27/17 Subjective:: extubated by pcp Reason For Visit: ANGIOEDEMA Physical Exam Vital Signs: Temp Pulse Resp BP Pulse Ox 97.9 F 87 19 166/98 H 96 05/27/17 08:00 05/27/17 08:00 05/27/17 08:00 05/27/17 08:00 05/26/17 20:00 Intake & Output 05/26/17 05/27/17 05/28/17 06:59 06:59 06:59 Intake Total 3700 344 Output Total 6430 8100 491 Balance 8849 -4173 -226 Weight 81.4 kg 78.3 kg General appearance: PRESENT: no acute distress, cooperative, disheveled, well- developed. ABSENT: mild distress, morbidly obese, obese, severe distress Head exam: PRESENT: atraumatic, normocephalic Eye exam: PRESENT: conjunctiva pale, EOMI. ABSENT: conjunctival injection, conjunctiva pink, nystagmus, periorbital swelling, scleral icterus Mouth exam: PRESENT: moist, neck supple, tongue midline. ABSENT: dry mucosa, laceration Neck exam: ABSENT: carotid bruit, JVD, lymphadenopathy, thyromegaly, tracheal deviation, tracheostomy Respiratory exam: PRESENT: rhonchi, symmetrical, unlabored. ABSENT: accessory muscle use, chest wall tenderness, clear to auscultation nora, crackles, decreased breath sounds, prolonged expiratory phas, rales, retraction, stridor, tachypnea Cardiovascular exam: PRESENT: RRR, +S1, +S2 Pulses: PRESENT: normal radial pulses GI/Abdominal exam: PRESENT: diminished bowel sounds, soft Extremities exam: PRESENT: full ROM. ABSENT: clubbing, joint swelling Musculoskeletal exam: PRESENT: ambulatory, full ROM. ABSENT: deformity, dislocation Neurological exam: PRESENT: alert, awake Psychiatric exam: PRESENT: normal mood Skin exam: PRESENT: dry, warm Results Laboratory Results: 05/27/17 04:30 05/27/17 04:30 05/27/17 05/27/17 04:30 04:30 WBC 18.0 H RBC 4.52 Hgb 12.7 L Hct 38.5 MCV 85 MCH 28.0 MCHC 33.0 RDW 14.5 H Plt Count 127 L Seg Neutrophils % Not Reportable Lymphocytes % Not Reportable Monocytes % Not Reportable Eosinophils % Not Reportable Basophils % Not Reportable Absolute Neutrophils Not Reportable Absolute Lymphocytes Not Reportable Absolute Monocytes Not Reportable Absolute Eosinophils Not Reportable Absolute Basophils Not Reportable Sodium 148.0 H Potassium 3.7 Chloride 108 H Carbon Dioxide 27 Anion Gap 13 BUN 25 H Creatinine 1.02 Est GFR ( Amer) > 60 Est GFR (Non-Af Amer) > 60 Glucose 120 H Calcium 9.5 Phosphorus 3.4 Magnesium 2.6 H 05/24/17 02:04 Troponin I 0.030 Impressions: Chest X-Ray 05/27/17 06:00 IMPRESSION: 1. Interval removal of endotracheal tube and NG tube. Otherwise stable appearance of the chest. Assessment & Plan - Diagnosis (1) Acute respiratory failure Qualifiers: Respiratory failure complication: unspecified whether with hypoxia or hypercapnia Qualified Code(s): J96.00 - Acute respiratory failure, unspecified whether with hypoxia or hypercapnia Is this a current diagnosis for this admission?: Yes Plan: extubated stable (2) Anaphylactic shock Qualifiers: Encounter type: subsequent encounter Qualified Code(s): T78.2XXD - Anaphylactic shock, unspecified, subsequent encounter Is this a current diagnosis for this admission?: Yes Plan: Etiology unclear extubated (3) Asthma Qualifiers: Asthma severity: unspecified severity Is this a current diagnosis for this admission?: Yes Plan: Continue bronchodilator therapy - Time Total Critical Time (Minutes): 35
== END 2017-05-27 11:14 | disposition home or self-care (01) | DRG 915 ==
LOC: ER 17:31 → EH 05-24 00:44 → ICU 05-24 01:03
PROVIDERS: ADMIT Family Medicine; ATTEND Family Medicine
PROC: 30233K1 Transfusion of Nonautologous Frozen Plasma into Peripheral Vein, Percutaneous Approach (ICD-10-PCS; 2017-05-23)
PROC: 5A1945Z Respiratory Ventilation, 24-96 Consecutive Hours (ICD-10-PCS; principal; 2017-05-24)
PROC: 0BH17EZ Insertion of Endotracheal Airway into Trachea, Via Natural or Artificial Opening (ICD-10-PCS; 2017-05-24)
DX: T78.3XXA Angioneurotic edema, initial encounter (principal); J96.00 Acute respiratory failure, unspecified whether with hypoxia or hypercapnia; T78.2XXA Anaphylactic shock, unspecified, initial encounter; T88.9XXA Complication of surgical and medical care, unspecified, initial encounter; I10 Essential (primary) hypertension; I95.9 Hypotension, unspecified; J45.998 Other asthma; R00.0 Tachycardia, unspecified; Y83.9 Surgical procedure, unspecified as the cause of abnormal reaction of the patient, or of later complication, without mention of misadventure at the time of the procedure; Y92.530 Ambulatory surgery center as the place of occurrence of the external cause
CPT/HCPCS: 320; 36415; 36430; 71045; 731; 80048; 80053; 81001; 82803; 83735; 84100; 84478; 84484; 85025; 85027; 86850; 86900; 86901; 94003; 94799; 96372; 96374; 96375; 99291; J0171; J1100; J1170; J1200; J1644; J1940; J2250; J2405; J2704; J2930; J3490; J7030; J7620; P9017; S0028